=== PATIENT | female | born 1960 | race Caucasian/White ===

== ENCOUNTER 2018-02-20 12:25 | Emergency (ER) | payer BC ==
[~2018-02-20] VITALS: Ht 172.7 cm; Wt 115.7 kg
[2018-02-20] MEDS ORDERED: EFFEXOR XR150 MG PO (12:46)
[2018-02-20] MEDS ORDERED: ABILIFY2 MG PO (12:46)
[2018-02-20] MEDS ORDERED: BUPROPION XL300 MG PO (12:46)
[2018-02-20] MEDS ORDERED: AMBIEN10 MG PO (13:56)
== END 2018-02-20 15:01 | disposition home or self-care (01) ==
LOC: ER 12:25
DX: G47.09 Other insomnia (principal)